=== PATIENT | male | born 1950 | race Caucasian/White ===

== ENCOUNTER 2018-04-25 11:57 | Day surgery (SDC) | payer MEDICARE, OTHER ==
[~2018-04-25] VITALS: Ht 177.8 cm; Wt 70.3 kg
[~2018-04-25 11:57] MED LIST: CIALIS5 MG PO; FINASTERIDE5 MG PO; IBUPROFEN600 MG PO; LISINOPRIL20 MG PO; MAPAP325 MG PO; OXYCODON-ACETA1 EAC2 PO; PAROXETINE HCL10 MG PO; SIMVASTATIN20 MG PO; TAMSULOSIN HCL0.4 MG PO; WARFARIN SODIUM5 MG PO
--- NOTE | 2018-04-25 15:00 | NUR ---
04/25/18 1450 Micaela Miller 1455-PATIENT ARRIVED TO PACU ON 6L OM NONAROUSABLE ORAL AIRWAY IN PLACE. LAYING LEFT LATERAL. ABDOMEN SOFT. RR EVEN. SR
--- NOTE | 2018-04-27 11:06 | OR ---
[facility] [address] [place], [place] [address] Signed DATE OF OPERATION: 04/25/2018 SURGEON: Diony Jo MD PREOPERATIVE DIAGNOSES: 1. Enigmatic weight loss. 2. Prostate symptoms. 3. Unprovoked deep venous thrombosis with pulmonary embolism. POSTOPERATIVE DIAGNOSES: 1. Mild chronic gastritis, no sign of neoplasm. 2. Diverticulosis of colon. PROCEDURES PERFORMED: 1. Esophagogastroduodenoscopy. 2. Total colonoscopy to cecum. ANESTHESIA: Intravenous sedation, propofol infusion, Diony Alfred CRNA. INDICATION: This 68-year-old white man is known to me from the past having undergone recurrent left inguinal hernia repair in August of 2016 with rather prompt recurrence unfortunately. His original hernia operation was in September of 1996 by me. The patient has significant prostate symptoms with obstruction type problems, which may or may not contribute to his recurrent hernia. He was noted to have a pulmonary embolism as diagnosed by CT scan. He is now chronically anticoagulated with Coumadin. With his significant weight loss and unprovoked deep venous thrombosis, concern is maintained for possible malignancy. Notably, CT scan of his chest on 02/14/2018 showed no sign of neoplasm of the chest, but did confirm the pulmonary embolism. He is chronically anticoagulated with Coumadin. He has been recommended and wisely so by physician, Rhea Siddiqi MD of [place], [place], that he undergo upper endoscopy and colonoscopy. He understands as does his the risks of bleeding, infection, and perforation related to upper endoscopy and colonoscopy and wished to proceed. Mindful of his pulmonary embolism and so forth, we will take the exceptional approach of leaving him completely anticoagulated with Coumadin rather than bridge therapy or withdrawal therapy at all. He and his understand that a large lesion that may require biopsy excision would have to be delayed given his anticoagulation and notes and Electronically Signed By: DIONY JO MD 04/27/18 1106 PATIENT NAME: RACHEL SCHULTZ OPERATIVE REPORT DATE OF : 48 REPORT #: [id number] PHYSICIAN: DIONY JO MD PCP: CRIS ALFREDO PAC REPORT IS CONFIDENTIAL AND NOT TO BE RELEASED WITHOUT AUTHORIZATION [facility] [address] [place], [place] [address] Signed acknowledges that there may be slight increased bleeding complication while fully anticoagulated so as to avoid precipitating worsening of pulmonary embolism or recurrent DVT, however we will proceed with colonoscopy and upper endoscopy while anticoagulated with Coumadin fully. FINDINGS: There is no lesion on upper or lower endoscopic exam to account for his weight loss and certainly no malignancy seen on either study. There was mild chronic gastritis. Colon had numerous diverticula. There were no polyps. DESCRIPTION OF PROCEDURE: The patient was brought to the endoscopy suite and placed in lateral decubitus position, given intravenous sedation to the point of slurred speech and deep sedation. Full cardiopulmonary monitoring was maintained. A propofol infusional technique was used. A bite block was placed. An Olympus video upper endoscope was passed in the hypopharynx. The vocal cords appeared normal. Scope was advanced to the esophagus, throughout its length it was normal. Stomach was evaluated and found to be normal as well. The pylorus was normal. Scope was passed through into the duodenum, which was essentially normal. The scope was withdrawn to the stomach, noting some proximal gastritis. No sign of ulceration or neoplasm. Retroflexed view showed a small hiatal hernia. The scope was straightened. Careful inspection of the esophagus showed no abnormality particularly. Plans were then made for colonoscopy. Digital rectal examination was performed which was normal. An Olympus video colonoscope was passed in the rectum and manipulated throughout the colon ultimately intubating the cecum itself. The ileocecal valve and appendiceal orifice were normal. The scope was withdrawn from that point. Examination showed no sign of polyps or cancer, but did confirm numerous diverticula of the sigmoid and left colon. Retroflexed view showed internal hemorrhoidal changes. The scope was removed. The patient was taken to recovery room in good condition. CONCLUSION DIAGNOSIS: No lesion on upper or lower endoscopic evaluation to account for weight loss or precipitation of an unprovoked deep venous thrombosis (specifically cancer). PLAN: He will return to the ongoing care of Ms. Alfredo and Dr. Ruano, urologist. Electronically Signed By: DIONY JO MD 04/27/18 1106 PATIENT NAME: RACHEL SCHULTZ OPERATIVE REPORT DATE OF : 48 REPORT #: [id number] PHYSICIAN: DIONY JO MD PCP: CRIS ALFREDO PAC REPORT IS CONFIDENTIAL AND NOT TO BE RELEASED WITHOUT AUTHORIZATION [facility] [address] [place] [id number] Signed MD JAD Quinn/MODL /[id number] cc: SONG James MD Aimee Rogers, MD Copies: CRIS ALFREDO LESLIE MD ROGERS, AIMEE MD ~ Electronically Signed By: DIONY JO MD 04/27/18 1106 PATIENT NAME: RACHEL SCHULTZ OPERATIVE REPORT DATE OF : 48 REPORT #: [id number] PHYSICIAN: DIONY JO MD PCP: CRIS ALFREDO REPORT IS CONFIDENTIAL AND NOT TO BE RELEASED WITHOUT AUTHORIZATION
== END 2018-04-25 15:50 | disposition home or self-care (01) ==
LOC: OPS 11:57 → DS 11:57 → OPS 12:00 → DS 04-26 12:00
PROVIDERS: Surgery
PROC: 0DJD8ZZ Inspection of Lower Intestinal Tract, Via Natural or Artificial Opening Endoscopic (ICD-10-PCS; principal; 2018-04-25 13:00)
PROC: 0DJ08ZZ Inspection of Upper Intestinal Tract, Via Natural or Artificial Opening Endoscopic (ICD-10-PCS; 2018-04-25 13:00)
DX: K29.50 Unspecified chronic gastritis without bleeding (principal); K57.30 Diverticulosis of large intestine without perforation or abscess without bleeding; K44.9 Diaphragmatic hernia without obstruction or gangrene; I82.409 Acute embolism and thrombosis of unspecified deep veins of unspecified lower extremity; I26.99 Other pulmonary embolism without acute cor pulmonale; E78.00 Pure hypercholesterolemia, unspecified; K40.91 Unilateral inguinal hernia, without obstruction or gangrene, recurrent; I10 Essential (primary) hypertension; K21.9 Gastro-esophageal reflux disease without esophagitis; H02.403 Unspecified ptosis of bilateral eyelids; Z88.5 Allergy status to narcotic agent; Z79.899 Other long term (current) drug therapy; Z87.891 Personal history of nicotine dependence; Z98.890 Other specified postprocedural states; Z86.010 Personal history of colon polyps; Z79.01 Long term (current) use of anticoagulants
CPT/HCPCS: J2704; J7120

== ENCOUNTER 2019-01-02 07:05 | Day surgery (SDC) | payer MEDICARE, OTHER ==
[~2019-01-02] VITALS: Ht 175.3 cm; Wt 69.0 kg
--- NOTE | ~2019-01-02 | OR ---
[facility] [facility] [address] [place], [place] [address] Draft DATE OF OPERATION: 01/02/2019 SURGEON: Diony Jo MD PREOPERATIVE DIAGNOSIS: Recurrent left inguinal hernia (second recurrence). POSTOPERATIVE DIAGNOSIS: Recurrent left inguinal hernia (second recurrence), direct type defect. PROCEDURES: 1. Repair of recurrent right inguinal hernia with implantation of Prolene mesh (underlay technique). 2. Explantation of portion of previous Prolene mesh. ANESTHESIA: General LMA; Diony Alfred CRNA, and local 10 mL of 0.25% Marcaine with epinephrine. INDICATION: This 68-year-old white man underwent a left inguinal hernia by me in 1996 and did well by it until about 2016 at which time, he was noted to have a recurrent hernia. The patient did have some urinary outlet obstructive type symptoms. He underwent repair of the recurrence with implantation of Prolene mesh in the midportion of the inguinal canal where a distinct defect was noted. He had progression of his urinary outlet obstructive symptoms and promptly developed a recurrent hernia once again on the left side. He has since that time undergone a TURP for bladder outlet obstructive type symptoms without sign of prostate cancer proper. He is having no hesitancy in voiding at this point. The patient was erroneously diagnosed with a pulmonary embolism in [place] through an emergency room CT scan and was treated for presumed pulmonary embolism with anticoagulation, but further evaluation including that by Dr. Martinez and repeat imaging showed no sign of such a problem and therefore he is no longer anticoagulated. He does have recurrent hernia, which is reducible in the left inguinal area. He is admitted at this time to undergo repair of his 2nd recurrence with the advantage at this point of no bladder outlet obstructive symptoms. No chronic cough. No constipation. He has had colonoscopy in the past two years showing no sign of abnormality as well. PATIENT NAME: RACHEL SCHULTZ OPERATIVE REPORT DATE OF : 48 REPORT #: [id number] PHYSICIAN: DIONY JO MD PCP: ELIZABETH MARK MD REPORT IS CONFIDENTIAL AND NOT TO BE RELEASED WITHOUT AUTHORIZATION [facility] [address] [place], [place] [address] Draft The patient and his understand the risks of operation, particularly given recurrent hernia, bleeding, infection, vascular injury to the cord, and other unforeseen complications including of course recurrence despite efforts to avoid that. He understands this and wished to proceed. FINDINGS: Fair amount of scar tissue was noted within the wound. The cord structures were very densely adherent to the floor of the inguinal canal. Mobilization of the cord was undertaken with all due care so as to avoid a vascular injury. The defect was lateral in relation to the inguinal canal and medial of course to the cord structures themselves. There was intact mesh medially and inferiorly and a thick rim of scarred mesh around the cord proper. I suspect that due to straining the mesh either pulled away or was somehow distracted despite its wide underlay approach previously. Repair consisted of removal of portion of previous mesh and reimplantation of Prolene mesh in the properitoneal space. An optimal repair appears evident at this time. As regard to the cord structures, they were attenuated to be sure. Special care was taken to preserve both venous and arterial flow to the cord structures including the testicle. DESCRIPTION OF PROCEDURE: The patient was brought to the operating room, given a general anesthetic by LMA technique. Preoperative antibiotic Ancef was given. Sequential compression device stockings were used. The lower abdomen was clipped and prepared with a chlorhexidine solution and draped sterilely. An incision was made in the previous left groin incision. Dissection carried through the subcutaneous tissue with electrocautery. Dense scar tissue was noted of the external oblique. This was freed from the overlying subcutaneous tissue and the cord structures emanating from the external ring were identified. The fibrotic external oblique was incised with electrocautery and dissected free with blunt electrocautery dissection, revealing underlying cord structures. They were densely adherent to the inguinal ligament and the floor of the canal. Meticulous care was taken to mobilize them fully. The fibrotic external oblique medially was reflected and a hernia defect could be seen, which appeared to be inferior and lateral in relation to the inguinal canal. There was no well-formed hernia sac, only a defect of properitoneal fat. Once the cord was mobilized more fully from the floor, it was clear that previous implanted mesh provided a dense barrier for much of the inguinal canal and likely there was pull away of previous mesh from the tendon of the transversus abdominis in the lateral superior aspect. Some fibrotic mesh near the cord structures was dissected free and portions excised as necessary to allow for anchoring of the mesh in the superior and lateral aspect of the inguinal ligament. Photographs were taken. The properitoneal tissue that was herniated was bluntly replaced into the properitoneal space. A space was created beneath the floor medially and this was to allow implantation of Prolene mesh. A segment of Prolene mesh was cut to an elliptical configuration and secured in an underlay technique with interrupted 2-0 Prolene sutures. PATIENT NAME: RACHEL SCHULTZ OPERATIVE REPORT DATE OF : 48 REPORT #: [id number] PHYSICIAN: DIONY JO MD PCP: ELIZABETH MARK MD REPORT IS CONFIDENTIAL AND NOT TO BE RELEASED WITHOUT AUTHORIZATION [facility] [address] [place] [address] Draft A defect was cut in the graft to accommodate the cord structures. Care was taken in securing the sutures to avoid neurovascular bundles or cord structures proper. Some oozing of the cord structures were secured with minimal amounts of electrocautery and one persistently oozing venous area secured with a 7-0 Prolene suture again to preserve flow. A 10 mL of 0.25% Marcaine with epinephrine was then injected locally. The external oblique was reapproximated with running 2-0 Vicryl and Crystal's layer was reapproximated with interrupted 2-0 Vicryl. The skin was closed with running subcuticular 3-0 Vicryl. Steri-Strips were applied. The patient tolerated the procedure well. BLOOD LOSS: Minimal. COMPLICATIONS: None. MD JAD Quinn/SASHA /[id number] cc: Cris Alfredo PA-C Copies: CRIS ALFREDO [facility] ~ PATIENT NAME: RACHEL SCHULTZ OPERATIVE REPORT DATE OF : 48 REPORT #: [id number] PHYSICIAN: DIONY JO MD PCP: ELIZABETH MARK MD REPORT IS CONFIDENTIAL AND NOT TO BE RELEASED WITHOUT AUTHORIZATION
[~2019-01-02 07:05] MED LIST changes: +ASPIR-LOW81 MG PO; +CALAMINE LOTIO177 M1 TOP; +CIPRO500 MG PO; +CURCUMIN1 GM MISC; +LIPITOR20 MG PO; +PERCOCET 5-3251 EACH PO; +PROMETHAZINE HC25 M1 PO; +WARFARIN SODIU7.5 MG PO; -WARFARIN SODIUM5 MG PO
--- NOTE | 2019-01-02 10:23 | NUR ---
01/02/19 1023 Sarahi Iniguez 1018 PATIENT ARRIVES TO PACU SLEEPING, DOES NOT AWAKEN WITH VERBAL STIMULI, ORAL AIRWAY IN PLACE. RESP EVEN AND UNLABORED, MASK AT 10 LITERS. 1022 PATIENT CONTINUES TO BE UNRESPONSIVE WITH ORAL AIRWAY IN PLACE, MASK DECREASED TO 6 LITERS.
--- NOTE | 2019-01-02 11:10 | NUR ---
PT ARRIVES BACK TO DS ROOM 3 FROM PACU ON RA. PT SITTING UP IN BED DRINKING WATER AND DENIES NAUSEA AND REPORTS TOLERABLE 2/10 PAIN AT SURGICAL SITE. PT'S AT BEDSIDE AND DISCUSSED DC CRITERIA. PT AND AGREEABLE. PT DENIES OTHER NEEDS BESIDES FRESH ICE WATER AT THIS TIME. CALL LIGHT WITHIN REACH
[2019-01-02] MEDS ORDERED: IBUPROFEN600 MG PO (11:11)
[2019-01-02] MEDS ORDERED: OXYCODON-ACETA1 EAC2 PO (11:11)
[2019-01-02] MEDS ORDERED: TYLENOL EXTRA500 MG PO (11:11)
--- NOTE | 2019-01-02 11:47 | NUR ---
THIS RN IN PT ROOM. PT RESTING WITH EYES CLOSED AND WAKES TO VERBAL STIMULUS. AT BEDSIDE STATES " HE WAKES UP EVERY ONCE IN AWHILE". PT TOLERATIN GPO FLUIDS. JELLO PROVIDED. P DENIES NAUSEA. CALL LIGHT WITHIN REACH
--- NOTE | 2019-01-02 12:07 | NUR ---
1200 PT UP TO BATHROOM AND TOLERATING AMBULATING. PT REPORTS PAIN 2/10 AND TOLERABLE. IV REMOVED AND PT STARTING TO GET DRESSED WITH AT BEDSIDE. PT HAD NO DIFFICULTY VOIDING AND ALL QUESTIONS ANSWERED, PT VOIDED 20ML.
--- NOTE | 2019-01-02 12:27 | NUR ---
DC INSTRUCTIONS WITH PRECAUTIONS PROVIDED. PT VERBALIZES UNDERSTANDING AND DENIES FURTHER QUESTIONS. PRESCRIPTION WITH PAIN MEDICINE GIVEN. PT TRANSPORTED IN WHEELCHAIR TO VEHICLE DRIVEN BY
== END 2019-01-02 12:20 | disposition home or self-care (01) ==
LOC: OPS 07:05 → DS 07:05 → OPS 07:45 → DS 07:45 → OPS 12:20
PROVIDERS: Surgery
PROC: 0YU60JZ Supplement Left Inguinal Region with Synthetic Substitute, Open Approach (ICD-10-PCS; principal; 2019-01-02 07:45)
DX: K40.91 Unilateral inguinal hernia, without obstruction or gangrene, recurrent (principal); E78.00 Pure hypercholesterolemia, unspecified; N40.0 Benign prostatic hyperplasia without lower urinary tract symptoms; H02.403 Unspecified ptosis of bilateral eyelids; Z88.5 Allergy status to narcotic agent; Z98.890 Other specified postprocedural states; Z79.899 Other long term (current) drug therapy; Z87.891 Personal history of nicotine dependence
CPT/HCPCS: J0461; J0690; J1100; J1644; J1885; J2250; J2405; J2704; J2765; J3010; J7120

== ENCOUNTER 2020-01-09 07:10 | Day surgery (SDC) | payer MEDICARE, OTHER ==
[~2020-01-09] VITALS: Ht 172.7 cm; Wt 69.0 kg
[~2020-01-09 07:10] MED LIST changes: +TYLENOL EXTRA500 MG PO; +ZESTRIL5 MG
--- NOTE | 2020-01-09 09:30 | NUR ---
01/09/20 0937 Sarahi Iniguez 0966 PATIENT ARRIVES TO PACU SLEEPING, AWAKENS WITH VERBAL STIMULI. RESP EVEN AND UNLABORED, COARSE AT TIMES WITH A LOT OF ORAL SECRETIONS. MOUTH WIPED OF SECRETIONS. MASK AT 10 LITERS, DECREASED TO 6L ONCE IN PACU. WARM BLANKETS GIVEN. PATIENT BACK TO SLEEP.
[2020-01-09] MEDS ORDERED: OXYCODON-ACETA1 EAC2 PO (09:38)
[2020-01-09] MEDS ORDERED: IBUPROFEN600 MG PO (09:38)
[2020-01-09] MEDS ORDERED: ACETAMINOPHEN500 MG PO (09:38)
--- NOTE | 2020-01-09 12:09 | NUR ---
CALLED CONCERNING PRESCRIPTION [facility]IST TOLD THEM HE HAS ALLERGY TO MORPHINE SO COULD REACT TO OXYCODONE BECAUSE HAS MORPHINE IN IT. TALKED WITH DR JO AND HE SAYS NOT LIKELY AND PT OK TO TAKE PAIN MEDICINE. THIS CALLED TO .
--- NOTE | 2020-01-09 12:15 | OR ---
[facility] [address] [place], [place] [address] Signed DATE OF OPERATION: 01/09/2020 SURGEON: Diony Jo MD PREOPERATIVE DIAGNOSIS: Right inguinal hernia. POSTOPERATIVE DIAGNOSIS: Right inguinal hernia, direct and indirect. PROCEDURE: Repair of right inguinal hernia with implantation of Prolene mesh, high ligation, and excision of sac. ANESTHESIA: General, LMA (Diony Alfred CRNA), and local, 10 mL of 0.25% Marcaine with epinephrine. INDICATION: This 69-year-old white man has undergone left inguinal hernia repair by me as well as recurrent hernia on the left side x2. He was ultimately treated for benign prostatic hypertrophy problems with TURP and now voids well without straining. He has no sign of recurrence on the left side, though he has had some pain attributed to the left side. He more recently presents with a reducible right inguinal hernia. He is here to undergo repair of the hernia, understanding the risks of bleeding, infection, recurrence, and so on. FINDINGS: An indirect sac was noted. There was no sign of incarcerated viscus. There was marked attenuation of the floor as well. Repair consisted of high ligation excision of the sac and implantation of Prolene mesh in the properitoneal space. Of note, an ilioinguinal nerve was identified and well preserved and not encumbered in sutures or in any other way. PROCEDURE IN DETAIL: The patient was brought to the operating room, given a general LMA-type anesthetic. Preoperative antibiotic Ancef was given. Sequential compression device stockings were used and heparin subcutaneously administered. The lower abdomen was clipped and prepared with chlorhexidine solution and draped sterilely. A small incision was made cephalad to the pubic tubercle on the right. Dissection carried through the subcutaneous tissue with blunt electrocautery dissection. The external oblique was Electronically Signed By: DIONY JO MD 01/09/20 1215 PATIENT NAME: RACHEL SCHULTZ OPERATIVE REPORT DATE OF : 48 REPORT #: [id number] PHYSICIAN: DIONY JO MD PCP: SAAD WHITTAKER REPORT IS CONFIDENTIAL AND NOT TO BE RELEASED WITHOUT AUTHORIZATION [facility] [address] [place], [place] [address] Signed incised along its fibers revealing the underlying cord. A very distinct and relatively large ilioinguinal nerve branch was dissected free from the cremasteric muscle fibers and reflected laterally around the external oblique. The cord was mobilized from the floor fully and encircled with a Edvin drain. The indirect hernia sac was dissected free from the fibers of the fascia of the cremasteric muscle fibers. It was isolated fully, opened, and found to have no sign of sliding or incarcerated contents. The neck of the hernia sac was secured with two separate interrupted 2-0 silk sutures and the redundant sac amputated and passed for pathology. An Allis clamp was applied to the tendon of the transversus abdominis and the floor of the canal was noted to be markedly attenuated. This was incised with electrocautery, planned for blunt dissection of the properitoneal space. A segment of Prolene mesh was cut to an elliptical configuration and secured in an underlay technique with a defect cut in the graft laterally to accommodate the cord. The tails were secured laterally with all due care additionally with 2-0 Prolene suture. Good repair of the floor was accomplished. The ilioinguinal nerve was carefully replaced to the inguinal canal and external oblique reapproximated with running 2-0 Vicryl suture. Then, 10 mL of 0.25% Marcaine with epinephrine was injected locally for its postoperative analgesic benefit. Crystal layer was reapproximated with interrupted 2-0 Vicryl and the skin closed with running subcuticular 3-0 Vicryl. Steri-Strips were applied as was silver sponge dressing. The patient tolerated the procedure well. COMPLICATIONS: There were no complication. ESTIMATED BLOOD LOSS: Minimal. MD JAD Quinn/MODL /[id number] cc: SARAH Rondon Copies: Electronically Signed By: DIONY JO MD 01/09/20 1215 PATIENT NAME: RACHEL SCHULTZ OPERATIVE REPORT DATE OF : 48 REPORT #: [id number] PHYSICIAN: DIONY JO MD PCP: SAAD WHITTAKER REPORT IS CONFIDENTIAL AND NOT TO BE RELEASED WITHOUT AUTHORIZATION [facility] [address] [place] [address] Signed ~ Electronically Signed By: DIONY JO MD 01/09/20 1215 PATIENT NAME: ANTOINERACHELROSIE MCLEANSELINA OPERATIVE REPORT DATE OF : 48 REPORT #: [id number] PHYSICIAN: DIONY JO MD PCP: SAAD WHITTAKER REPORT IS CONFIDENTIAL AND NOT TO BE RELEASED WITHOUT AUTHORIZATION
--- NOTE | 2020-01-12 14:05 | PATH ---
[facility] [address] [place], [place] [address] Signed SPECIMEN(S): A RIGHT INGUINAL HERNIA SAC SPECIMEN SOURCE: A. RIGHT INGUINAL HERNIA SAC CLINICAL HISTORY: Right indirect hernia sac, right inguinal hernia. FINAL PATHOLOGIC DIAGNOSIS: Right inguinal hernia sac: - Benign fibromembranous soft tissue with focal slight chronic inflammation consistent with clinical hernia sac. JVR:cml:C2NR MICROSCOPIC EXAMINATION: Histologic sections of all submitted blocks are examined by light microscopy. These findings, together with the gross examination, support the pathologic diagnosis. GROSS DESCRIPTION: The specimen, labeled "DM," and designated on the requisition "right indirect hernia sac, right inguinal hernia," is received in formalin and consists of a portion of pink-wagner, soft, membranous tissue (2.3 x 2.1 x 0.3 cm). The specimen is submitted entirely in cassette (A1). AC (under the direct supervision of a pathologist) The Gross Description was prepared using a voice recognition system. The report was reviewed for accuracy; however, sound-alike word errors, addition and/or deletions may occur. If there is any question about this report, please contact Client Services. PERFORMING LABORATORY: The technical component was performed by [employer] [facility] [employer], [address] [place] [id number] (Terminal Operator: Suma Hallman MD; CLIA# [id number]). Professional interpretation was performed by [employer] [facility], [address] [address] (Terminal Operator: Salas Steen M.D.). Diagnostician: Salas Steen MD Pathologist Electronically Signed 01/12/2020 PATIENT NAME: RACHEL SCHULTZ PATHOLOGY DATE OF : 48 REPORT #: [id number] PHYSICIAN: DANIEL PATHOLOGY PCP: SAAD WHITTAKER REPORT IS CONFIDENTIAL AND NOT TO BE RELEASED WITHOUT AUTHORIZATION [address] [address] Signed Copies: ~ PATIENT NAME: RACHEL SCHULTZ PATHOLOGY DATE OF : 48 REPORT #: [id number] PHYSICIAN: DANIEL PATHOLOGY PCP: SAAD WHITTAKER REPORT IS CONFIDENTIAL AND NOT TO BE RELEASED WITHOUT AUTHORIZATION
== END 2020-01-09 11:05 | disposition home or self-care (01) ==
LOC: DS 07:10
PROVIDERS: ATTEND Surgery
PROC: 0YU50JZ Supplement Right Inguinal Region with Synthetic Substitute, Open Approach (ICD-10-PCS; principal; 2020-01-09 08:15)
DX: K40.90 Unilateral inguinal hernia, without obstruction or gangrene, not specified as recurrent (principal); I10 Essential (primary) hypertension; K21.9 Gastro-esophageal reflux disease without esophagitis; Z98.890 Other specified postprocedural states; Z79.899 Other long term (current) drug therapy; Z87.891 Personal history of nicotine dependence
CPT/HCPCS: C1781; J0330; J0690; J1100; J1644; J1885; J2250; J2405; J2704; J2765; J3010; J7121

== ENCOUNTER 2020-01-16 09:40 | Day surgery (SDC) | payer MEDICARE, OTHER ==
[~2020-01-16 09:40] MED LIST changes: +ACETAMINOPHEN500 MG PO
[2020-01-16] MEDS ORDERED: ASPIRIN81 MG PO (10:10)
[2020-01-16] MEDS ORDERED: OXYCODON-ACETA1 EAC2 PO (11:47)
[2020-01-16] MEDS ORDERED: ACETAMINOPHEN500 MG PO (11:48)
--- NOTE | 2020-01-16 12:10 | NUR ---
01/16/20 1210 Deanne Jimenez 1139- PT ARRIVES TO PACU AWAKE AND TALKING WITH STAFF. PT REPORTS PAIN TO BE A 2/10 IN HIS RIGHT GROIN. PT STATES THIS IS TOLERABLE FOR HIM AND DENIES NEEDING ANYTHING FOR PAIN AT THIS TIME. EDUCATED PT TO NOTIFY THIS RN IF HE CHANGES HIS MIND OR HIS PAIN BECOMES WORSE. PT STATES UNDERSTANDING AND AGREEABLE TO THIS. PT DENIES NAUSEA. RESP EVEN AND UNLABORED. OXYGEN SAT HIGH 90'S TO 100% ON 6L VIA MASK. 1140- OXYGEN TITRATED OFF.
--- NOTE | 2020-01-16 12:15 | NUR ---
PATIENT BACK IN DAY SURGERY ROOM FROM PACU. C/O PAIN 03/28. KADEN DRAIN TO RIGHT GROIN. RIGHT GROIN DRESSING CDI. VS CHECKED. IV SALINE LOCKED. PATIENT TOLERATING WATER. CRACKERS AND PUDDING PLACED AT BEDSIDE. AT BEDSIDE. SCDs ON. CALL LIGHT WITHIN REACH.
--- NOTE | 2020-01-19 15:17 | OR ---
[facility] [address], [place] [address] Signed DATE OF OPERATION: 01/16/2020 SURGEON: Diony Jo MD PREOPERATIVE DIAGNOSIS: Right groin wound hematoma, status post right inguinal hernia repair one week ago. POSTOPERATIVE DIAGNOSIS: Right groin wound hematoma, status post right inguinal hernia repair one week ago. PROCEDURE: Exploration of groin wound with evacuation of groin hematoma, irrigation and placement of drain. ANESTHESIA: General LMA, Pancho Frederick CRNA. INDICATION: A 69-year-old white man underwent right inguinal hernia repair by me a week ago, Sunday. He began having some ecchymosis a few days after operation and increasing swelling and pain in the past 24 hours. I saw him in the Day Surgery Area today where obvious significant hematoma in the right groin wound was noted. He did have secondary edema of the scrotum and the thigh and lateral hip area. The hematoma is not expanding, but is draining some very dark fluid from the lateral aspect of the incision. Rather than observational therapy, I have recommended to return to the OR, evacuation of hematoma, irrigation and placement of drain as appropriate. The risks of bleeding, infection, and so forth were reviewed with him. FINDINGS: Indeed, gelatinous clot was noted within the wound. There was no sign of active bleeding. Some clot extended into the hemiscrotum. Complete irrigation was undertaken. There was no sign of disruption of the hernia repair or anything of that sort. Once irrigation was complete, a drain was placed in the depths of the wound extending down into the scrotum. DESCRIPTION OF PROCEDURE: The patient was brought to the operating room, given a general LMA type anesthetic. Preoperative antibiotic Ancef was given. Sequential compression device stockings were used. After satisfactory anesthesia, the abdomen was prepared with a Betadine based solution including the scrotum. Sterile draping was undertaken and the wound edges were Electronically Signed By: DIONY JO MD 01/19/20 1517 PATIENT NAME: RACHEL SCHULTZ OPERATIVE REPORT DATE OF : 48 REPORT #: [id number] PHYSICIAN: DIONY JO MD PCP: SAAD WHITTAKER REPORT IS CONFIDENTIAL AND NOT TO BE RELEASED WITHOUT AUTHORIZATION [facility] [address], [place] [address] Signed , although they were starting to open laterally anyway. Clot was evacuated, which filled my hand in aggregate. I would estimate this about 50 mL maybe. Irrigation was undertaken and the depths of the wound as well as into the hemiscrotum. Some clot was evacuated by retrograde milking of the right hemiscrotum, though it was not the dominant site of blood collection. Irrigation was undertaken more fully and the assessment made for any ongoing bleeding, which appeared to be none. Some Geraldine hemostatic agent was insufflated to the depth of the wound including the hemiscrotum and through a separate stab incision on the lateral to the incision, a 7 mm flat Logan drain was placed. It was insinuated down into the depths of the scrotum. Crystal layer was reapproximated with interrupted 2-0 Vicryl and skin was closed with running subcuticular of 2-0 Vicryl. Steri-Strips were applied as was a silver sponge dressing. The drain was attached to bulb suction. MD JAD Quinn/JOSÉL /[id number] Copies: ~ Electronically Signed By: DIONY JO MD 01/19/20 1517 PATIENT NAME: RACHEL SCHULTZ OPERATIVE REPORT DATE OF : 48 REPORT #: [id number] PHYSICIAN: DIONY JO MD PCP: SAAD WHITTAKER REPORT IS CONFIDENTIAL AND NOT TO BE RELEASED WITHOUT AUTHORIZATION
--- NOTE | 2020-01-19 15:17 | CONS ---
[facility] [address], [place] [address] Signed DATE OF CONSULTATION: 01/16/2020 PROBLEM: Right groin swelling and bleeding. HISTORY OF PRESENT ILLNESS: This 69-year-old white man underwent right inguinal hernia repair by me a week ago Sunday. He has been reasonably inactive since his operation, but noticed some bruising and ecchymosis of his inner thigh 2 days after operation. Today, I was called that he was having black blood dripping from his wound and increased swelling after some increase of activity yesterday. I asked him to come to the Day Surgery Area for evaluation. His examination shows him to have a fair amount of ecchymosis of his thigh, right abdomen and some secondary edema of his right hemiscrotum, but also a hematoma in the right groin incision. It is able to drain off somewhat thickened very dark blood. Clinically, a hematoma was present. I have recommended exploration, evacuation of the hematoma and irrigation. PHYSICAL EXAMINATION: GENERAL: He looks well overall. He is accompanied by his . CHEST: Clear. HEART: Regular without murmur. Right groin incision shows some swelling of the site with hematoma, but no sign of bright blood or bleeding. ASSESSMENT: He has developed a hematoma in the postoperative period. He is already a week out from operation. Options include observation versus evacuation. Given the findings, I would recommend evacuation, irrigation and probably closure and possibly a drain. The risks of bleeding, infection, and so forth were reviewed with him, he understands. Notably, he has been n.p.o. since last night incidentally. MD JAD Quinn/SASHA /[id number] Electronically Signed By: DIONY JO MD 01/19/20 1517 PATIENT NAME: RACHEL SCHULTZ CONSULTATION DATE OF : 48 REPORT #: [id number] PHYSICIAN: DIONY JO MD PCP: SAAD WHITTAKER REPORT IS CONFIDENTIAL AND NOT TO BE RELEASED WITHOUT AUTHORIZATION [address] [address] Signed Copies: ~ Electronically Signed By: DIONY JO MD 01/19/20 1517 PATIENT NAME: RACHEL SCHULTZ CONSULTATION DATE OF : 48 REPORT #: [id number] PHYSICIAN: DIONY JO MD PCP: SAAD WHITTAKER REPORT IS CONFIDENTIAL AND NOT TO BE RELEASED WITHOUT AUTHORIZATION
== END 2020-01-16 13:10 | disposition home or self-care (01) ==
LOC: OPS 09:40 → DS 09:40 → EDSTATUS 09:41 → OPS 13:10
PROVIDERS: ATTEND Surgery
PROC: 3E0T3BZ Introduction of Anesthetic Agent into Peripheral Nerves and Plexi, Percutaneous Approach (ICD-10-PCS; 2020-01-16)
PROC: 3E0T33Z Introduction of Anti-inflammatory into Peripheral Nerves and Plexi, Percutaneous Approach (ICD-10-PCS; 2020-01-16)
PROC: 0V9500Z Drainage of Scrotum with Drainage Device, Open Approach (ICD-10-PCS; principal; 2020-01-16 10:30)
DX: K91.871 Postprocedural hematoma of a digestive system organ or structure following other procedure (principal); N50.89 Other specified disorders of the male genital organs; G89.18 Other acute postprocedural pain; N40.1 Benign prostatic hyperplasia with lower urinary tract symptoms; N13.8 Other obstructive and reflux uropathy; R63.4 Abnormal weight loss; E78.00 Pure hypercholesterolemia, unspecified; Y83.8 Other surgical procedures as the cause of abnormal reaction of the patient, or of later complication, without mention of misadventure at the time of the procedure; Z68.21 Body mass index [BMI] 21.0-21.9, adult; Z88.5 Allergy status to narcotic agent; Z79.899 Other long term (current) drug therapy; Z79.52 Long term (current) use of systemic steroids
CPT/HCPCS: 76942; J0690; J1100; J2001; J2405; J2704; J3010; J7121